=== PATIENT | female | born 1945 | race Caucasian/White ===

== ENCOUNTER → 2016-11-28 | Outpatient (CLI) | payer MEDICARE ==
--- NOTE | 2016-11-29 13:10 | US ---
History: Elevated liver function tests. Complete upper abdominal ultrasound: Upper abdominal sonography is performed and correlated with 2015 exam. The liver is of increased echogenicity with some attenuation of the ultrasound. No intrahepatic ductal dilatation is shown. The common duct is prominent at 9 to 10 mm but remains grossly stable since prior study and is not associated with intrahepatic ductal dilatation. Image of the gallbladder fossa raises the question of surgical removal. The visualized aorta, IVC and pancreas are normal. Small peripelvic cysts are noted on the left. The right kidney is 9.5 and left kidney 10.0 cm. Renal cortical thickness and echogenicity is well-maintained. Focal echogenic focus mid lower portion left kidney does not demonstrate significant shadowing, perhaps representing an arcuate artery. No definite calculus is shown. No obstructive change. The spleen is normal and measures 9.3 cm. No free fluid in the upper abdomen. IMPRESSION: Mild to moderate fatty infiltration of the liver, stable to slightly improved since 2015. Electronically signed by: Erendira Maddox MD 11/29/2016 1:08 PM CDT Workstation: [id number]
== END | disposition home or self-care (01) ==
LOC: US 08:08
PROVIDERS: ATTEND Family Medicine
DX: R94.5 Abnormal results of liver function studies (principal)

== ENCOUNTER → 2017-02-16 | Outpatient (CLI) | payer MEDICARE | END | disposition home or self-care (01) | LOC: GMA 10:47 | PROVIDERS: ATTEND Nurse Practitioner Family | DX: R07.9 Chest pain, unspecified (principal) ==

== ENCOUNTER 2017-07-04 06:04 | Day surgery (SDC) | payer MEDICARE ==
[2017-07-04] MEDS ORDERED: LIDOCAINE 1% 10 ML VIAL INJ ONE (06:05)
[2017-07-04] MEDS ORDERED: PROPOFOL 200 MG/20 ML VIAL IV ONE (06:05)
[2017-07-04] MEDS ORDERED: LACTATED RINGERS 1,000 ML ONE (06:10)
[2017-07-04 08:07] VITALS: O2SAT 95
[2017-07-04 09:58] VITALS: BP 132/71; TEMP 96.7
--- NOTE | 2017-07-04 10:10 | OP ---
DATE OF PROCEDURE: 07/04/17 PREOPERATIVE DIAGNOSIS: 1. Gastroesophageal reflux disease. 2. Funes syndrome. 3. History of colonic polyps. Last colonoscopy in 2014. POSTOPERATIVE DIAGNOSIS: PROCEDURE: 1. Esophagogastroduodenoscopy plus biopsy. 2. Colonoscopy plus polypectomy. SURGEON: Edward Dupree MD. COMPLICATIONS: None apparent. BLOOD LOSS: None. MEDICATIONS: Monitored anesthesia care. DESCRIPTION OF PROCEDURE: Informed consent was obtained prior to sedation. The preprocedure cardiopulmonary assessment was satisfactory. The patient was placed in the left lateral decubitus position and was sedated. The tip of the Olympus esophagogastroduodenoscope was inserted in the oropharynx and carefully advanced through the cricopharyngeus into the esophageal lumen. The esophagus was unremarkable. The stomach was examined with direct and retroflexed views. The antrum, body, fundus, cardia and incisura were closely examined. Because of the reflux symptoms despite her proton pump inhibitor, I biopsied her for H. pylori. There were no ulcers and no significant gastritis. She did have a few small hyperplastic appearing polyps in the fundus. Several of these probable fundic gland polyps were removed with cold biopsy forceps. The duodenum was unremarkable to the third portion. The upper endoscopy was then terminated. The patient was then rotated 180 degrees. A digital rectal exam revealed a polyp in the distal rectum. No other abnormalities were palpated with digital rectal exam. The tip of the Olympus colonoscope was inserted in the rectum and guided easily over to the cecum. The cecum was identified by locating the ileocecal valve. Prep was good. The mucosa of the cecum, ascending colon, hepatic flexure, transverse colon, splenic flexure, descending colon and sigmoid colon was closely examined. Direct and retroflexed views of the rectum were obtained. In the proximal ascending colon, there was a 5 mm sessile polyp that I removed with a hot snare and recovered. In the distal most rectum, just proximal to the anal verge, there was a 7 mm sessile polyp that I removed with the hot snare and recovered. The patient had some diverticulosis. Otherwise, the colonoscopy was unremarkable. The procedure was then terminated. RECOMMENDATIONS: 1. Followup the pathology. 2. Followup with me in the office in one year. #[id number] cc: Mirza Carrillo MD [facility]
== END 2017-07-04 10:55 | disposition home or self-care (01) ==
LOC: AMB 06:04
PROVIDERS: ATTEND Internal Medicine Gastroenterology
DX: Z15.09 Genetic susceptibility to other malignant neoplasm (principal); D12.7 Benign neoplasm of rectosigmoid junction; D12.2 Benign neoplasm of ascending colon; K57.30 Diverticulosis of large intestine without perforation or abscess without bleeding; K31.7 Polyp of stomach and duodenum; Z86.010 Personal history of colon polyps; K21.9 Gastro-esophageal reflux disease without esophagitis; I10 Essential (primary) hypertension; E66.9 Obesity, unspecified; Z68.32 Body mass index [BMI] 32.0-32.9, adult; Z79.899 Other long term (current) drug therapy
CPT/HCPCS: 00813; 43239; 45385; 87077; 88305; J3490; J7120

== ENCOUNTER → 2017-10-02 | Outpatient (CLI) | payer MEDICARE ==
--- NOTE | 2017-10-02 13:45 | MAM ---
EXAM DESCRIPTION: 3D Screening BILATERAL : Digital Mammography. CLINICAL HISTORY: 71 years Female SCREENING . No complaints. No family history breast cancer. Childbirth. Hysterectomy. Has taken HRT 5 or more years ago. COMPARISON: Baseline study at this facility. No prior reports available. TECHNIQUE: Bilateral CC and MLO projection full-field images, 3-D tomosynthesis digital mammographic technique. CAD not utilized. FINDINGS: The breast parenchymal density pattern is: Scattered areas of fibroglandular density. No skin thickening or nipple retraction. Bilateral solitary microcalcifications. Bilateral axillary lymph nodes. No focal, stellate mass or density, focal asymmetry , and no suspicious microcalcifications bilaterally. Stable mammograms compared to prior study, taking into account differences in mammographic technique IMPRESSION: BI-RADS CATEGORY: 2 - BENIGN FINDINGS. FOLLOW UP: Routine digital bilateral screening, one year interval from September 2017. Written communication explaining the IMPRESSION and follow-up, will be mailed to the patient and referring health care provider. According to the [employer], yearly mammograms are recommended starting at age 40 and continuing as long as a woman is in good health. Any breast change noted on a breast self-exam should be reported promptly to the patient's healthcare provider. Breast MRI is recommended for women with an approximately 20-25% or greater lifetime risk of breast cancer, including women with a strong family history of breast or ovarian cancer and women who have been treated for Hodgkin's disease. A negative mammographic report should not delay tissue diagnosis in patients with significant clinical history or physical findings. Extremely dense breast tissue limits the sensitivity of digital mammography. Electronically signed by: Juan Jose Prajapati MD 10/02/2017 1:43 PM CDT
== END ==
LOC: MAMMO 09:30
PROVIDERS: ATTEND Family Medicine
DX: Z12.31 Encounter for screening mammogram for malignant neoplasm of breast (principal)

== ENCOUNTER → 2018-06-06 | Outpatient (CLI) | payer MEDICARE ==
--- NOTE | 2018-06-06 11:23 | RAD ---
EXAM DESCRIPTION: Wrist,Left 3 Views CLINICAL HISTORY: 72 years Female, LOCALIZED SWELLING, MASS AND LUMP COMPARISON: None available. FINDINGS: The visualized bones are well-mineralized.No acute fracture or dislocation. Severe triscaphe joint osteoarthritis is noted. Mild radiocarpal joint osteoarthritis is also present. The soft tissues appear grossly unremarkable. IMPRESSION: Severe triscaphe joint osteoarthritis is noted. No definite mass is visualized radiographically. Electronically signed by: Peyton Sinclair MD 06/06/2018 11:20 AM [facility]
== END ==
LOC: RAD 08:36
PROVIDERS: ATTEND Orthopaedic Surgery
DX: R22.9 Localized swelling, mass and lump, unspecified (principal); M19.032 Primary osteoarthritis, left wrist

== ENCOUNTER → 2018-09-05 | Outpatient (CLI) | payer MEDICARE ==
--- NOTE | 2018-09-06 07:34 | MRI ---
EXAM DESCRIPTION: Knee,Right CLINICAL HISTORY: 72 years Female, PAIN IN RIGHT KNEE COMPARISON: None. TECHNIQUE: Noncontrast multiplanar multisequence magnetic resonance imaging of the right knee. FINDINGS: High-grade full-thickness cartilage loss is present throughout the medial and lateral patellar facet with multifocal areas of subchondral bone marrow edema and cystlike formation consistent with advanced chondrosis. Nonfocal grade 2 chondrosis is seen within the corresponding trochlear groove. There is a medial patellar plica thickened at 2 mm. Moderate size knee joint effusion is present with mild synovitis. No popliteal cyst formation. Quadriceps and patellar tendons are maintained. Medial lateral patellar retinacular attachments are intact. Small/mild prepatellar bursitis. Cruciate ligaments are normal in thickness and signal intensity. Small 3 and 4 mm heterotopic loose bodies noted within the posterior aspect of the joint space. Lateral meniscus is normal in thickness and signal intensity. The medial meniscus exhibits intrasubstance signal that does not approach the tibial or femoral articular surface to meet strict imaging criteria for tearing. This medial meniscal signal is most apparent along the posterior root attachment. Nonspecific edema noted within the adjacent tibia at the posterior root attachment. There is no meniscal extrusion. The collateral ligaments are intact. No bone contusion or aggressive bone lesion. Mild generalized thinning of the lateral and medial compartment articular surface without focal chondrosis. IMPRESSION: Abnormal signal within the posterior root attachment of the medial meniscus does not meet strict imaging criteria for meniscal tearing. See above description. Advanced patellofemoral chondrosis/early osteoarthritis. Moderate size knee joint effusion with synovitis with small heterotopic loose bodies posterior aspect of the joint space. Intact cruciate and collateral ligaments. Medial patellar plica. Electronically signed by: Daquan Garcia MD 09/06/2018 7:32 AM CDT
== END ==
LOC: MRI 10:41
PROVIDERS: ATTEND Family Medicine
DX: M17.11 Unilateral primary osteoarthritis, right knee (principal); M67.51 Plica syndrome, right knee

== ENCOUNTER → 2018-12-04 | Outpatient (CLI) | payer MEDICARE ==
--- NOTE | 2018-12-05 17:50 | MAM ---
EXAM DESCRIPTION: 3D Screening BILATERAL : Digital Mammography. CLINICAL HISTORY: 72 years Female Screening . No complaints. No personal or family history of breast cancer. Hysterectomy +30 years ago. Childbirth. HRT 5 or more years ago.. Lifetime risk of developing breast cancer (Tyrer-Cuzick model)(%): 3.7. COMPARISON: Bilateral screening digital breast tomosynthesis 10/02/2017. TECHNIQUE: Bilateral CC and MLO projection full-field images, digital tomosynthesis mammographic technique. Bilateral digital 2-D full-field MLO images. CAD not available for tomosynthesis or 2-D images. FINDINGS: The breast parenchymal density pattern is: Scattered areas of fibroglandular density. No skin thickening or nipple retraction. Bilateral solitary scattered microcalcifications. Bilateral vascular calcifications. Focal asymmetry in the upper-outer quadrant of the middle third of the left breast stable. No new focal, stellate mass or density, focal asymmetry , and no suspicious microcalcifications bilaterally. Stable mammograms compared to prior study. IMPRESSION: Benign exam. BIRAD CATEGORY: 2 BENIGN FINDINGS. RECOMMENDATIONS: FOLLOW UP: Routine digital bilateral mammographic screening, one year interval from November 2018. Written communication explaining the IMPRESSION and follow-up, will be mailed to the patient and referring health care provider. The FINDINGS and the FOLLOW-UP plan were reviewed in person with the patient after the examination. According to the [employer], yearly mammograms are recommended starting at age 40 and continuing as long as a woman is in good health. Any breast change noted on a breast self-exam should be reported promptly to the patient's healthcare provider. Breast MRI is recommended for women with an approximately 20-25% or greater lifetime risk of breast cancer, including women with a strong family history of breast or ovarian cancer and women who have been treated for Hodgkin's disease. A negative mammographic report should not delay tissue diagnosis in patients with significant clinical history or physical findings. Extremely dense breast tissue limits the sensitivity of digital mammography. Electronically signed by: Juan Jose Prajapati MD 12/05/2018 5:48 PM CDT
== END ==
LOC: MAMMO 13:00
PROVIDERS: ATTEND Family Medicine
DX: Z12.31 Encounter for screening mammogram for malignant neoplasm of breast (principal)

== ENCOUNTER → 2019-05-12 | Outpatient (CLI) | payer MEDICARE | LOC: US 09:42 | PROVIDERS: ATTEND Family Medicine | DX: N63.41 Unspecified lump in right breast, subareolar (principal) ==

== ENCOUNTER 2019-10-22 05:12 | Day surgery (SDC) | payer MEDICARE ==
[2019-10-22] MEDS ORDERED: LACTATED RINGERS 1,000 ML ONE (06:42)
[2019-10-22] MEDS ORDERED: PROPOFOL 200 MG/20 ML VIAL IV ONE (07:00)
[2019-10-22] MEDS ORDERED: LIDOCAINE 1% 10 ML VIAL INJ ONE (07:00)
--- NOTE | 2019-10-22 10:58 | OP ---
DATE OF PROCEDURE: 10/22/19 PREOPERATIVE DIAGNOSIS: 1. Funes syndrome. 2. Family history of colon cancer. 3. History of polyps. POSTOPERATIVE DIAGNOSIS: 1. Gastric polyps which look like fundic gland polyps. 2. Diverticulosis. 3. Schatzki's ring. 4. Small hiatal hernia. PROCEDURE: 1. EGD plus biopsy. 2. Colonoscopy. SURGEON: Edward Dupree MD. COMPLICATIONS: None apparent. BLOOD LOSS: None. MEDICATIONS: Monitored anesthesia care. DESCRIPTION OF PROCEDURE: Informed consent was obtained prior to sedation. The preprocedure cardiopulmonary assessment was satisfactory. The patient was placed in the left lateral decubitus position and was sedated. The tip of the Olympus esophagogastroduodenoscope was inserted in the oropharynx and carefully advanced through the cricopharyngeus into the esophageal lumen. The esophagus shows no evidence of esophagitis or Blake's. She has a mild, nonobstructing Schatzki's ring. In the stomach, she has a small hiatal hernia. She has a few polyps in the body of the fundus that look like benign hyperplastic fundic gland polyps. Several of these were removed with cold biopsy forceps. The rest of the stomach was unremarkable. The duodenum was examined down to the third portion and there was no evidence of duodenal adenoma or other neoplasm. The scope was then removed from the patient. The patient was rotated 180 degrees. A digital rectal exam was unremarkable. The tip of the Olympus colonoscope was inserted in the rectum and guided over to the cecum. The cecum was identified by locating the ileocecal valve and appendiceal orifice. Retroflexed view of the right colon was obtained. Prep was good. The mucosa of the cecum, ascending colon, hepatic flexure, transverse colon, splenic flexure, descending colon and sigmoid colon was closely examined. Direct and retroflexed views of the rectum were obtained. The patient had sigmoid diverticulosis. The patient has no polyps identified and no malignant colon neoplasia. The procedure was then terminated. RECOMMENDATIONS: 1. Followup polyp pathology. 2. Followup with us in one year or sooner if needed. #[id number] cc: Mirza Carrillo MD [facility]
[2019-10-22 11:16] VITALS: BP 149/68; TEMP 96.3; O2SAT 96
== END 2019-10-22 11:12 | disposition home or self-care (01) ==
LOC: AMB 05:12
PROVIDERS: ATTEND Internal Medicine Gastroenterology
DX: K31.7 Polyp of stomach and duodenum (principal); K21.9 Gastro-esophageal reflux disease without esophagitis; K22.2 Esophageal obstruction; K57.30 Diverticulosis of large intestine without perforation or abscess without bleeding; K44.9 Diaphragmatic hernia without obstruction or gangrene; I10 Essential (primary) hypertension; Z15.09 Genetic susceptibility to other malignant neoplasm; Z86.010 Personal history of colon polyps; Z79.899 Other long term (current) drug therapy; Z80.0 Family history of malignant neoplasm of digestive organs
CPT/HCPCS: 00811; 43239; 45378; 88305; J3490; J7120

== ENCOUNTER → 2020-02-02 | Outpatient (CLI) | payer MEDICARE | LOC: GMAJ 11:28 | PROVIDERS: ATTEND Family Medicine | DX: I10 Essential (primary) hypertension (principal); E78.2 Mixed hyperlipidemia ==